=== PATIENT | male | born 1975 | race Caucasian/White ===

== ENCOUNTER 2017-12-22 02:24 | Emergency (ER) | payer OTHER ==
[~2017-12-22] VITALS: Ht 177.8 cm; Wt 82.7 kg
[2017-12-22 02:29] VITALS: BP 124/88; Ht 177.8 cm; Wt 82.7 kg
[2017-12-22] MEDS ORDERED: BAYER CHEWABLE81 MG PO (02:30)
== END 2017-12-22 03:16 | disposition home or self-care (01) ==
LOC: D.ER 02:24
DX: Z20.2 Contact with and (suspected) exposure to infections with a predominantly sexual mode of transmission (principal); F17.200 Nicotine dependence, unspecified, uncomplicated

== ENCOUNTER 2020-10-31 19:48 | Emergency (ER) | payer SELFPAY ==
[~2020-10-31] VITALS: Ht 177.8 cm; Wt 86.4 kg
[~2020-10-31 19:48] MED LIST: BAYER CHEWABLE81 MG PO
[2020-10-31 19:55] VITALS: BP 128/70; Ht 177.8 cm; Wt 86.4 kg
== END 2020-11-01 00:28 | disposition left against medical advice (07) ==
LOC: D.ER 19:48
DX: R45.1 Restlessness and agitation (principal); Z53.29 Procedure and treatment not carried out because of patient's decision for other reasons; Z95.5 Presence of coronary angioplasty implant and graft; F22 Delusional disorders